=== PATIENT | female | born 1985 | race Caucasian/White ===

== ENCOUNTER → 2019-09-03 | Outpatient (CLI) | payer MEDICAID, SELFPAY ==
[2017-07-12 09:24] VITALS: BMI 34.4
[2019-09-03 19:14] LABS: Chlamydia Trachomatis by PCR Negative (Negative); Neisserai gonorrhoeae by PCR Negative (Negative); Probe Check PASS; Sample Adequacy Control PASS; Specimen Processing Control PASS
[2019-09-09 09:59] LABS: HPV APTIMA, High Risk Negative (Negative); HPV Reflexed? YES, CHARGE PATIENT
== END | disposition home or self-care (01) ==
LOC: LABSPEC 13:39
PROVIDERS: Visit Provider Obstetrics & Gynecology
DX: Z12.4 Encounter for screening for malignant neoplasm of cervix (principal); Z11.3 Encounter for screening for infections with a predominantly sexual mode of transmission
CPT/HCPCS: 87491; 87591; 87624; 88175; G0145

== ENCOUNTER → 2019-09-11 14:48 | Outpatient (CLI) | payer MEDICAID, SELFPAY ==
[2017-07-12 09:24] VITALS: BMI 34.4
[2019-09-11 15:44] LABS: Absolute Lymphocyte Count 2.06 X10^3/uL (0.83-4.51); Absolute Neutrophil Count 5.8 X10^3/uL (2.0-7.7); Basophil# 0.03 X10^3/uL; Basophil% 0.4 % (0-1); Eosinophil# 0.08 X10^3/uL; Hematocrit 40.5 % (37-47); Hemoglobin 13.9 g/dL (12.0-15.0); Lymphocyte # 2.06 X10^3/ul (4.0); Lymphocyte % 24.7 % (19-41); Mean Corp Hgb Conc 34.3 g/dL (32-36); Mean Corpuscular Hgb 30.7 pg (27.0-32.0); Mean Corpuscular Volume 89.4 fL (81-99); Monocyte# 0.32 X10^3/uL; Monocyte% 3.8 % (0-10); NRBC Flagged by Analyzer 0 % (0-5); Neutrophil # 5.82 X10^3/uL (2.7-7.7); Neutrophil % 69.7 % (47-70); Platelet Count 176 K/mm3 (150-450); RBC Distribution Width CV 12.4 % (11.6-14.6); RBC Distribution Width SD 40.6 fl (35.1-43.9); Red Blood Count 4.53 M/mm3 (4.2-5.4); White Blood Count 8.3 K/mm3 (4.4-11.0)
[2019-09-11 16:02] LABS: Thyroid Stim Hormone (TSH) 0.78 uIU/mL (0.358-3.74)
[2019-09-11 16:03] LABS: Amphetamine Urine VISTA NEGATIVE (<1000 ng/mL); Barbiturate Urine VISTA NEGATIVE (< 200 ng/mL); Benzodiazepine Urine VISTA NEGATIVE (< 200 ng/mL); Cocaine Urine VISTA NEGATIVE (< 300 ng/mL); Ecstacy Urine VISTA NEGATIVE (< 500 ng/mL); Methadone Urine VISTA NEGATIVE (< 300 ng/mL); PCP Urine VISTA NEGATIVE (< 25 ng/mL); THC Urine VISTA POSITIVE (< 50 ng/mL); Vista UDS pH Range 5
[2019-09-11 16:10] LABS: Color, Urine Yellow (Yellow); Glucose, Dipstick Normal (Normal); Ketone-Dipstick 5 mg/dl (Negative); Leukocyte Esterase-Dipstick 100 /ul (Negative); Nitrite-Dipstick Negative (Negative); Occult Blood-Urine 10 /ul (Negative); Protein-Dipstick Negative (Negative); Urine Bilirubin Dipstick Negative (Negative); Urine Clarity Cloudy (Clear); Urine Urobilinogen Normal (Normal)
[2019-09-12 09:01] LABS: HIV - WCH Non-Reactive (Nonreactive); Hepatitis B Surface Antigen Non-Reactive (Nonreactive); Hepatitis C Antibody Non-Reactive (Nonreactive); Rubella IgG 30.8 IU/mL
[2019-09-18 01:51] LABS: Prenatal RPR NONREACTIVE (NONREACTIVE)
== END ==
PROVIDERS: Visit Provider Obstetrics & Gynecology
DX: Z34.81 Encounter for supervision of other normal pregnancy, first trimester (principal)
CPT/HCPCS: 36415; 80307; 81002; 84443; 85025; 86703; 86762; 86803; 87340

== ENCOUNTER → 2019-11-27 | Outpatient (CLI) | payer MEDICAID, SELFPAY ==
[2017-07-12 09:24] VITALS: BMI 34.4
[2019-11-27 17:29] LABS: Amphetamine Urine VISTA NEGATIVE (<1000 ng/mL); Barbiturate Urine VISTA NEGATIVE (< 200 ng/mL); Benzodiazepine Urine VISTA NEGATIVE (< 200 ng/mL); Cocaine Urine VISTA NEGATIVE (< 300 ng/mL); Ecstacy Urine VISTA NEGATIVE (< 500 ng/mL); Methadone Urine VISTA NEGATIVE (< 300 ng/mL); PCP Urine VISTA NEGATIVE (< 25 ng/mL); THC Urine VISTA POSITIVE (< 50 ng/mL); Vista UDS pH Range 6
== END | disposition home or self-care (01) ==
LOC: LABSPEC 17:01
PROVIDERS: Referring Provider Obstetrics & Gynecology; Visit Provider Obstetrics & Gynecology
DX: Z34.82 Encounter for supervision of other normal pregnancy, second trimester (principal)
CPT/HCPCS: 80307

== ENCOUNTER → 2020-01-15 15:26 | Outpatient (CLI) | payer MEDICAID, SELFPAY ==
[2017-07-12 09:24] VITALS: BMI 34.4
[2020-01-15 16:40] LABS: Hematocrit 36.9 % (37-47); Hemoglobin 12.5 g/dL (12.0-15.0); Mean Corp Hgb Conc 33.9 g/dL (32-36); Mean Corpuscular Hgb 30.5 pg (27.0-32.0); Mean Platelet Vol. 11.5 fl (6.2-12.0); Platelet Count 197 K/mm3 (150-450); RBC Distribution Width CV 13.2 % (11.6-14.6); RBC Distribution Width SD 43.1 fl (35.1-43.9); White Blood Count 7.2 K/mm3 (4.4-11.0)
[2020-01-15 16:45] LABS: Glucose Challenge Gest 1H 50g 136 mg/dL (70-140)
== END ==
PROVIDERS: Visit Provider Obstetrics & Gynecology
DX: Z34.83 Encounter for supervision of other normal pregnancy, third trimester (principal)
CPT/HCPCS: 36415; 82950; 85027

== ENCOUNTER → 2020-02-13 16:38 | Outpatient (CLI) | payer MEDICAID, SELFPAY ==
[2020-02-13 17:54] LABS: Amphetamine Urine VISTA NEGATIVE (<1000 ng/mL); Barbiturate Urine VISTA NEGATIVE (< 200 ng/mL); Benzodiazepine Urine VISTA NEGATIVE (< 200 ng/mL); Cocaine Urine VISTA NEGATIVE (< 300 ng/mL); Ecstacy Urine VISTA NEGATIVE (< 500 ng/mL); Methadone Urine VISTA NEGATIVE (< 300 ng/mL); PCP Urine VISTA NEGATIVE (< 25 ng/mL); THC Urine VISTA NEGATIVE (< 50 ng/mL); Vista UDS pH Range 7
== END ==
PROVIDERS: Referring Provider Obstetrics & Gynecology; Visit Provider Obstetrics & Gynecology
DX: Z34.83 Encounter for supervision of other normal pregnancy, third trimester (principal)
CPT/HCPCS: 80307

== ENCOUNTER 2020-03-02 01:11 | Outpatient (CLI) | payer MEDICAID, SELFPAY ==
[2017-07-12 09:24] VITALS: BMI 34.4
[2020-03-02 01:25] VITALS: BP 103/58; PULSE 88
[2020-03-02 02:09] VITALS: BMI 31.4
--- NOTE | 2020-03-03 07:37 | OB.TRI.NOTE ---
- Problem List (1) 34 weeks gestation of Status: Acute History of Present Illness Date of Service: 03/02/20 Reason For Visit: RULE OUT LABOR Date of Service: 03/02/20 Final TORSTEN: 04/07/20 Gestational age: 35 Weeks and 0 Days History of Present Illness: Here to rule out labor Allergies No Known Allergies Allergy (Verified 03/02/20 02:09) Review of Systems Constitutional: Denies: Chills, Fever, Weight Change HEENT: Denies: Head Aches, Sinus Congestion, Sinus Drainage Cardiovascular: Denies: Chest Pain, Palpitations Respiratory: Denies: Cough, Shortness of breath at rest, Sputum production Gastrointestinal: Denies: Abdominal Pain, Nausea, Vomiting Genitourinary: Denies: Dysuria Musculoskeletal: Denies: Joint Pain, Joint Tenderness Skin: Denies: Rash, Wounds Neurological: Denies: Numbness, Tingling, Focal weakness Psychiatric: Denies: Anxiety, Depression, Homicidal Ideations, Suicidal Ideations Hematologic/ Lymphatic: Denies: Easy Bruising, Easy Bleeding Physical Exam Vitals: Vital Signs Pulse BP 88 103/58 L 03/02/20 01:25 03/02/20 01:25 General: Alert, Oriented x3, No apparent distress HEENT: Atraumatic, Normocephalic. Negative for: Thyromegaly, Lymphadenopathy Cardiovascular: Regular rate, Regular Rhythm Lungs: Clear to auscultation Abdomen: Bowel Sounds Present, Gravid Neurological: Deep Tendon Reflexes 2+/4 and Symmetrical, Neuro grossly intact NUMBERER AND WIRER: Normal external genitalia. Negative for: Vulvar lesions Estimated gestational size: Appropriate for gestational size Presentation: Cephalic Cervix Dilation (cm): 1 - per RN Station: -2 Effacement (%): 70 NST - FHR Rate Baby A Baseline: 120 Variability:: Moderate Accelerations:: 15 x 15 Decelerations:: None NST Reactive:: Yes FHR Category:: Category I Uterine Activity:: Irritability Impression/Plan A/P: here to rule out labor at 34.6 weeks gestation SVE unchanged after 2.5 hours of monitoring NST Category I Uterine irritability To discharge home to hydrate, rest, and Tylenol for discomfort Follow up with OB office tomorrow
== END 2020-03-02 04:00 | disposition home or self-care (01) ==
PROVIDERS: Referring Provider Obstetrics & Gynecology; Visit Provider Obstetrics & Gynecology
DX: O47.03 False labor before 37 completed weeks of gestation, third trimester (principal); Z3A.34 34 weeks gestation of pregnancy
CPT/HCPCS: 59025; 59050; 99218; G0378

== ENCOUNTER → 2020-03-12 | Outpatient (CLI) | payer MEDICAID, SELFPAY ==
[2020-03-02 02:09] VITALS: BMI 31.4
== END | disposition home or self-care (01) ==
LOC: LABSPEC 16:03
PROVIDERS: Visit Provider Obstetrics & Gynecology
DX: Z36.85 Encounter for antenatal screening for Streptococcus B (principal)
CPT/HCPCS: 87081

== ENCOUNTER 2020-03-30 11:00 | Outpatient (CLI) | payer MEDICAID, SELFPAY ==
[2020-03-30 11:17] VITALS: BMI 34.5
[2020-03-30 11:22] VITALS: PULSE 88; TEMP 36.6; O2SAT 97
[2020-03-30 11:54] VITALS: BP 106/57; PULSE 83
--- NOTE | 2020-03-30 19:39 | OB.TRI.HP_ITS ---
History of Present Illness Date of Service: 03/30/20 Was patient seen by the physician?: No Reason For Visit: R/O LABOR Date of Service: 03/30/20 Final TORSTEN: 04/07/20 Final TORSTEN Source: [place] <20 weeks Gestational age: 38 Weeks and 6 Days History of Present Illness: 38+ week intrauterine presents with some contractions. Patient scheduled for repeat tomorrow. Allergies No Known Allergies Allergy (Verified 03/30/20 11:12) Laboratory Studies: Laboratory Tests 03/30/20 Range/Units 11:15 COVID-19 (TAMAR) Not Detected (Not Detect) Physical Exam Vitals: Vital Signs Temp Pulse BP Pulse Ox 97.8 F 83 106/57 L 97 03/30/20 11:22 03/30/20 11:54 03/30/20 11:54 03/30/20 11:22 NST - FHR Rate Baby A NST Reactive:: Yes FHR Category:: Category I Impression/Plan 38+ week intrauterine with false labor. Reactive nonstress test. Cervix nonthreatening. Return if in labor later today or for scheduled C- section tomorrow.
== END 2020-03-30 12:45 | disposition home or self-care (01) ==
LOC: WPOUT 11:05 → WP 11:06
PROVIDERS: Referring Provider Obstetrics & Gynecology; Visit Provider Obstetrics & Gynecology
DX: O47.1 False labor at or after 37 completed weeks of gestation (principal); Z3A.38 38 weeks gestation of pregnancy
CPT/HCPCS: 59025; 59050; 87635; 94799; 99218; G0378; U0003

== ENCOUNTER 2020-03-31 05:10 | Inpatient (IN) | payer MEDICAID, SELFPAY ==
[2020-03-30 11:17] VITALS: BMI 34.5
--- NOTE | 2020-03-30 19:53 | PCM.HP.BLA ---
History and Physical Date of Admission: 03/31/20 ACOG ANTEPARTUM RECORD - HISTORY AND PHYSICAL (03/30/2020) Name: MEL BURRIS History of This : This is a 35-year-old G6, P3 AB 2 who presents for repeat at 39 weeks gestation. care has been uneventful except for marijuana use which she was advised to discontinue. She is also hepatitis C antibody positive but hepatitis C RNA was not detected. She has had prior sections x3. OB Physician: WILLY [place]'s Physician: DR. YURIDIA COONEY ...................................................................... : 1985 Age: 35 Address: [address] [place] [address] Phone: (h) [phone] Insurance Carrier: [facility] [id number] Emergency Contact: MARIE COMBSWELL [phone] ...................................................................... Final TORSTEN: 04/07/20 By Ultrasound: 11 weeks 1 day PARITY: (G-Total Pregnancies P-Fullterm,Premature,Induced AB,Spont AB, Ectopics, Multiple,Living) TORSTEN CONFIRMATION: By LMP: 07/02/19 Initial Exam: 04/07/20 By First Ultrasound Exam: 04/07/20 Final TORSTEN: 04/07/20 OB PROBLEM LIST: Daily marijuana use, for nausea; Advised to stop! Declines AFP and CF AMA, declines cfDNA testing Anxiety with past treatment Hep C antibody positive; MFM consult done. --Hep C RNA not detected! 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 Illicit Drug Use - Marijuana - using for nausea currently Sexual Activity - did not discuss sexual history Residence - rents an apartment and with three children Place of - [place] Hours Worked - 20 Spouse-Sig Other Name - Brigido Hand Spouse-Sig Other Occupation - Unemployed Children Name(s) - Nader (), Rashad (), Jaimee() PRIOR DELIVERY HISTORY DEL DATE GEST LAB WT LB WT OZ TYPE ANES LABOR TX Sep 02 5 0 0 0 Vag None No Sep 09 9 0 0 0 Vag None No Aug 28 40 12 6 3 C-Sec Epidural No May 31 38 0 10 0 C-Sec Spinal No Jul 13 39 0 7 0 C-Sec Spinal No ANTEPARTUM FLOW CHART VISIT GE RTC FU F F FL U U DATE WK MD WKS HT PN HR M SS BP ED WT FL GL D EF ST __ ____ ___ __ __ ___ __ __ __ ___ __ __ __ ___ __ 29 Feb JMW 3 38 + + 112/60 sl 203 - - Feb JMW 1 37 + + 116/68 tr 201 tr - Feb JMW 1 36 + + 102/60 1+ 197 tr - UN Feb CH 2 34 V + + 110/64 sl 190 tr - Jan JMW 2 32 + + 118/58 sl 188 - - Feb 23 CH 2 30 + + 100/60 0 185 tr - January 21 JMW 2 28 + + 126/66 0 179 - - January 20 JMW 1 27 + + 122/68 0 181 - - 30 Dec 19 JMW 3 25 + / 0 02 Dec 15 JMW 4 21 + + 112/58 0 179 tr - 04 Oct 08 JMW 4 + ? 116/68 0 180 tr - 16 Sep 05 JMW US 106/60 0 184 ANTEPARTUM NOTE(S): Mar 24 2020: Good FM Mar 18 2020: Good FM Mar 12 2020: GBS Done Feb 26 2020: possible pulled muscle under left breast, burning pain. Feb 13 2020: Decreased FM and low abd. pain, RLP noted Jan 29 2020: Complains of green discharge she has had for a month. Jan 15 2020: watch weight, Good FM Jan 07 2020: see progress note, c/w yeast-Monistat Dec 25 2019: Good FM, no spotting, bleeding ctxs Nov 27 2019: Sono Today,Good FM,Feeling Well Sep 30 2019: Nausea Better,Fatigue Daily Sep 11 2019: Sono,NOB and PNV Today,Nausea/Vomiting COMPREHENSIVE ANTEPARTUM NOTE(S): Mar 24 2020: Mel is her today for PNV PreOp. She is accompanied by boyfriend. Good FM, Some edema in feet. ProOp paper read and signed today. Ensure was given to PT. Medications and allergies reviewed today. No questions or concerns expressed today. LJ Mar 18 2020: H taken to OB. tkg Mar 18 2020: Mel is her today accompanied by boyfriend. Good FM, Some edema in feet. She states that she is tired of being . Expressed interest in moving date up if baby is big enough. Medications and allergies reviewed today. No other questions concerns expressed today. LJ Mar 12 2020: Mel is her today accompanied by boyfriend. Good FM, Some edema in feet. Medications and allergies reviewed today. GBS due today. LARC concent read and signed. No questions or concerns expressed today. [facility] Feb 26 2020: Mel is being seen for PNV. She is accompanied by 2 [facility]. She is feeling well but having pain underneath left breast and is having a burning like pain. AM Feb 26 2020: Here today with 2 officers. Left upper quad pain with ribs out of place upon palpation. To use ice on it and order wrote for that. Has court the so next appt made for the . Discussed GBS collection even with repeat csection so bottoms off. States understanding. If left in senior living the nurse might reschedule it. - Feb 13 2020: Mel presents here today with [facility]. for PNV due to c/o low abdominal pains that radiate around from one side to the other and occasional low backache. Reports decreased FM as well. Denies spotting/bleeding or leaking of fluids. CHRISTINE Jan 29 2020: here today for routine PNV. Reviewed 3rd trimester labs WNL with GTT being high normal. Discussed to watch carbs, sweets, and extras. States understanding. Reports +FM.Still having green discharge and examined today. On inspection thick green discharge. WEt mount done with +clue cells and yeast. Rx for BV and yeast sent in. Has a repeat Csection planned. To return in 2 weeks for routine PNV. - Jan 15 2020: 1 Hr Glucose, CBC drawn today. Good FM. Using Monistat 7 for vaginal yeast. kb Jan 07 2020: Mel is here as a work in visit. Called to triage on Sunday. Concerned with yellowish -- greenish vaginal discharge for the past few week. Glucola bottle and instructions given to be done next visit. Good FM. kb Sep 11 2019: Mel is here for her NOB visit at 10 w 1 d, she is a A2 (1 induced, 1 spontaneous) with an TORSTEN of 04/07/2020. She states that she is feeling terrible with nausea and would like NOB visit to be as quick as possible, and I now what to expect. Prior C/S x 3, she plans a repeat C/S at [facility] and will formula feed. She resides with her three children. New FOB this , Brigido Hand; she states she is unsure of his involvement. Brigido has 6 children form previous relationships, ages 5-18. labs drawn prior to NOB visit. She has office ed materials at home, and is aware of emergencies/danger signs to report and common OTC medications approved/ not approved for use during . Discussed round ligament pain, how to contact the office after hours, and reporting a suspected UTI. Mel states that she is nauseated every day and often vomits several times a day, she has a prescription for Promethazine, but states it doesn't help. Reviewed trying Vitamin B6 50 mg twice a day, along with Unisom (Doxylamine) at bedtime. Other ways to minimize nausea discussed, including small frequent meals with protein included throughout the day], adequate water hydration of at least 1 gallon per 24 hours, and Accupressure bracelets. She has no been taking any vitamin or multivitamins as they make nauseous; suggested trying two children's [employer] chewable multivitamins a day until nausea resolves. Genetic Screening form completed, Brigido(?) is AA, but she does not know if he has been checked for Sickle Cell trait. MSAFP and CF testing declined, consent signed as such. She is smoking 1 ppd, discussed risks to self, fetus, baby, and ATQ. Mel states that she smokes marijuana lately for nausea, ATQ; reinforced ways to help minimize nausea as noted above. She denies use of ETOH. water and dietary needs reviewed, including caloric needs, recommended weight gain, limiting empty calories,and limiting caffeine to one cup a day. Printed guide for food safety during provided with review. Lifting restrictions for , as well as recommended physical activity reviewed. She states that she understands all information provided during NOB visit. AW New Sep 11 2019: Attempted to see patient today. She stormed out of the room stating she wasn't waiting any longer and was leaving now. Met briefly with Sujit for NOB visit. Yelled that she would reschedule todays appt with CRISTINA. - SUSAN Sep 03 2019: ok Sep 03 2019: Mel presents here today for Missed Menses appointment. 34 y.o. G 6 P 3 smoker of 1/2 PPD (ATQ) and uses Marijuana prn for nausea with LMP 19 lasting 3 days and light. Positive UPT today in our Office. Presents here today at 8 weeks 6 days with an approximate TORSTEN of 20. Reports having daily nausea with vomiting and would like script for Promethazine sent in to Pharmacy. Denies spotting/bleeding thus far in . Brief review of danger signs and bleeding in . Plans Repeat with BTO at [facility] with this . Currently not taking a Vitamin as she cannot tolerate same with her nausea, we discussed trying it at night. Educational Materials given with a sample of Nature Made Vitamin. Medication and Allergy lists up-dated. CHRISTINE REVIEW OF SYSTEMS: GENERAL - Denies fever, or chills SKIN - Denies rash, new skin lesions, or change in moles EYES - Denies blurred vision, or change in visual acuity EARS - Denies ear pain, or difficulty hearing NOSE - Denies nasal congestion, discharge, or bleeding MOUTH - Denies sore throat, or difficulty swallowing NECK - Denies pain or swelling RESPIRATORY - Denies shortness of breath, cough, wheezing CARDIOVASCULAR - Denies palpitations, chest pain, orthopnea, PND, peripheral edema, syncope or claudication GASTROINTESTINAL - Denies nausea, vomiting, diarrhea, constipation, Denies abdominal pain, melena and or bright red blood GENITOURINARY - Denies dysuria, frequency of urination, urgency, or hesitancy MUSCULOSKELETAL - Denies joint or muscle pain, or back pain NEUROLOGICAL - Denies localized numbness, weakness, or tingling PSYCHIATRIC - Denies depression, anxiety, substance abuse or suicide attempts ENDOCRINE - Denies heat or cold intolerance, weight loss or gain, increasing thirst HEMATO-IMMUNOLOGIC - Denies easy bruising, bleeding, oral ulcerations or recurrent infections GENETICS SCREENING: Age 35+ years: No Thalassemia: No Neural Tube Defect: No Down Syndrome: No KRISTIAN-SACHS: No Sickle Cell Disease: No Hemophilia: No Musc. Dystrophy: No Cystic Fibrosis: No-declines screening Jose G Chorea: No Mental Retardation: No Fragile X: No Other genetic: No Other defects: No SABs/still births: No Drugs since LMP: Yes INFECTION HISTORY: High risk AIDS: No High risk Hepatitis: No Exposed to TB: No Exposed to Herpes: No Rash/viral illness since LMP: No History of STD: No MENSTRUAL HISTORY: *Menses Amount/Duration: 3 days, lightMenses Regularity: RegularFrequency: monthly* PAST SUMMARY: PARITY: 1. Total Pregnancies............ 6 2. Full Term Pregnancies........ 3 3. Premature.................... 0 4. Abortions - Induced.......... 1 5. Abortions - Spontaneous...... 1 6. Ectopics..................... 0 7. Multiple Births.............. 0 8. Living Children.............. 3 PAST #1: Date of :.................. 09/11/01 Gestation Weeks:................ 40 Length of labor(hours):......... 12 Sex:............................ M Weight-lbs:............... 6 Weight-oz:................ 3 Type of Delivery:............... C-Sect Type of Anesthesia:............. Epidural Place of Delivery:.............. [place] Treatment of Labor?:.... No Comment: BREECH PAST #2: Date of :.................. 06/15/05 Gestation Weeks:................ 38 Length of labor(hours):......... 0 Sex:............................ M Weight-lbs:............... 10 Weight-oz:................ 0 Type of Delivery:............... C-Sect Type of Anesthesia:............. Spinal Place of Delivery:.............. [place] Treatment of Labor?:.... No Comment: NO PAST #3: Date of :.................. 08/27/06 Gestation Weeks:................ 5 Length of labor(hours):......... 0 Sex:............................ Weight-lbs:............... 0 Weight-oz:................ 0 Type of Delivery:............... Vag Type of Anesthesia:............. None Place of Delivery:.............. [place] Treatment of Labor?:.... No Comment: SAB PAST #4: Date of :.................. 08/27/13 Gestation Weeks:................ 9 Length of labor(hours):......... 0 Sex:............................ UNKNOWN Weight-lbs:............... 0 Weight-oz:................ 0 Type of Delivery:............... Vag Type of Anesthesia:............. None Place of Delivery:.............. [place] Treatment of Labor?:.... No Comment: TAB PAST #5: Date of :.................. 07/19/17 Gestation Weeks:................ 39 Length of labor(hours):......... 0 Sex:............................ F Weight-lbs:............... 7 Weight-oz:................ 0 Type of Delivery:............... C-Sect Type of Anesthesia:............. Spinal Place of Delivery:.............. [place] Treatment of Labor?:.... No Comment: PHYSICAL EXAMINATION General Appearence: 35 yo female in no acute distress Vital Signs: AF, VSS Heart: RRR without rubs or gallops Lungs: CTA x 2 Breasts: deferred Abdomen: gravid Pelvis: Cervix: Presentation: cephalic Station: Fetus: Size: AGA Movement: present Heart: present Labs for : MEL BURRIS since 07/12/2019 ORDER DATEIN DESCRIPTION VALUE UNITS RANGE A+ COMMENT OB TRIAGE PHYSICIAN NOTE 03/30/20 [facility] Medical Records Department [address] [place] [address] [place] [address] OB Triage Physician Note 03/30/201938 MR#: [id number] Acct: [id number] Name: MEL BURRIS Rep #: [id number] : 1985 35 From: Nargis Vallecillo MD PCP: Care Physician, No Primary Status:DEP CLI Y Location: [facility] History of Present Illness Date of Service: 03/30/20 Was patient seen by the physician?: No Reason For Visit: R/O LABOR Date of Service: 03/30/20 Final TORSTEN: 04/07/20 Final TORSTEN Source: US <20 weeks Gestational age: 38 Weeks and 6 Days History of Present Illness: 38+ week intrauterine presents with some contractions. Patient scheduled for repeat C- section tomorrow. Allergies No Known Allergies Allergy (Verified 03/30/20 11:12) Laboratory Studies: Laboratory Tests 03/30/20 Range/Units 11:15 COVID-19 (TAMAR) Not Detected (Not Detect) Physical Exam Vitals: Vital Signs Temp Pulse BP Pulse Ox 97.8 F 83 106/57 L 97 03/30/20 11:22 03/30/20 11:54 03/30/20 11:54 03/30/20 11:22 NST - FHR Rate Baby A NST Reactive:: Yes FHR Category:: Category I Impression/Plan 38+ week intrauterine with false labor. Reactive nonstress test. Cervix nonthreatening. Return if in labor later today or for scheduled tomorrow. 03/30/201940 Date Nargis Vallecillo MD Cosigner Signature (if applicable): Date CC: No Primary Care Physician; Dr. Nargis Vallecillo MD Signed CORONAVIRUS 19, TAMAR SCREEN 03/30/20 NOTE Original Ordering Provider: Nargis Vallecillo COVID-19,TAMAR Not Detected Not Detect Normal Reference Range: Not Detected Method:(RT-PCR) real-time reverse transcriptase PCR QordobaES Instrument *The Food and Drug Administration (FDA) has issued an Emergency Use Authorization (EAU) for the JOSE ENRIQUE SARS-CoV-2 Assay for the rapid detection of the virus that causes COVID-19. This test has been validated, but the FDAs independent review of this validation is pending. *Negative results do not preclude infection and should not be used as the sole basis for treatment or patient management. Optimum specimen types and timing for peak viral levels during infections caused by SARS-CoV-2 have not been determined. Collection of multiple specimens from the same patient may be necessary to detect the virus. The possibility of a false negative result should be considered if the patient has clinical presentation or has had recent exposure. Reviewed by NARGIS CULTURE, GROUP B STREPTOCOCCUS 03/12/20 NOTE Original Ordering Provider: Nargis Vallecillo Comments: VAGINAL/RECTAL PRIYANKA Culture Group B Beta Streptococcus is not isolated. Reviewed by NARGIS OB TRIAGE PHYSICIAN NOTE 03/03/20 [facility] Medical Records Department [address] [place] [address] OB Triage Physician Note 03/03/20 0737 MR#: [id number] Acct: [id number] Name: MEL BURRIS Rep #: [id number] : 1985 35 From: Sheron Minaya CNM PCP: Care Physician, No Primary Status:DEP CLI Y Location: [facility] - Problem List (1) 34 weeks gestation of Status: Acute History of Present Illness Date of Service: 03/02/20 Reason For Visit: RULE OUT LABOR Date of Service: 03/02/20 Final TORSTEN: 04/07/20 Gestational age: 35 Weeks and 0 Days History of Present Illness: Here to rule out labor Allergies No Known Allergies Allergy (Verified 03/02/20 02:09) Review of Systems Constitutional: Denies: Chills, Fever, Weight Change HEENT: Denies: Head Aches, Sinus Congestion, Sinus Drainage Cardiovascular: Denies: Chest Pain, Palpitations Respiratory: Denies: Cough, Shortness of breath at rest, Sputum production Gastrointestinal: Denies: Abdominal Pain, Nausea, Vomiting Genitourinary: Denies: Dysuria Musculoskeletal: Denies: Joint Pain, Joint Tenderness Skin: Denies: Rash, Wounds Neurological: Denies: Numbness, Tingling, Focal weakness Psychiatric: Denies: Anxiety, Depression, Homicidal Ideations, Suicidal Ideations Hematologic/ Lymphatic: Denies: Easy Bruising, Easy Bleeding Physical Exam Vitals: Vital Signs Pulse BP 88 103/58 L 03/02/20 01:25 03/02/20 01:25 General: Alert, Oriented x3, No apparent distress HEENT: Atraumatic, Normocephalic. Negative for: Thyromegaly, Lymphadenopathy Cardiovascular: Regular rate, Regular Rhythm Lungs: Clear to auscultation Abdomen: Bowel Sounds Present, Gravid Neurological: Deep Tendon Reflexes 2+/4 and Symmetrical, Neuro grossly intact CLINICAL LABORATORY AIDES TEACHER: Normal external genitalia. Negative for: Vulvar lesions Estimated gestational size: Appropriate for gestational size Presentation: Cephalic Cervix Dilation (cm): 1 - per RN Station: -2 Effacement (%): 70 NST - FHR Rate Baby A Baseline: 120 Variability:: Moderate Accelerations:: 15 x 15 Decelerations:: None NST Reactive:: Yes FHR Category:: Category I Uterine Activity:: Irritability Impression/Plan A/P: here to rule out labor at 34.6 weeks gestation SVE unchanged after 2.5 hours of monitoring NST Category I Uterine irritability To discharge home to hydrate, rest, and Tylenol for discomfort Follow up with OB office tomorrow 03/03/20 0743 Date Sheron Minaya CNM 03/03/20 0933 Cosigner Signature (if applicable): Date Nargis Vallecillo MD CC: MINA Minaya; No Primary Care Physician; Dr. Nargis Vallecillo MD Signed Reviewed by NARGIS URINE DRUG SCREEN (BASILIO) 02/13/20 NOTE Original Ordering Provider: Nargis Vallecillo TO BE CONFIRMED CONFIRMATORY TESTING FOR ALL POSITIVE URINE DRUG SCREEN RESULTS WILL ONLY BE SENT OUT UPON PHYSICIAN ORDER. BASILIO Urine Drug Screen methods provide only preliminary analytical test results. A more specific alternate chemical method must be used in order to obtain a confirmed analytical result. Gas chromatography/mass spectrometery (GC/MS) is the preferred confirmatory method. Clinical consideration and professional judgement should be applied to any drug of abuse test result, particularly when preliminary positive results are used. URINE TCA TESTING MUST BE ORDERED SEPARATELY. USE TEST MNEMONIC: [facility] UDS PH 7 AMPHETAMINES NEGATIVE <1000 ng/mL BARBITIURATES NEGATIVE < 200 ng/mL BENZODIAZIPINE NEGATIVE < 200 ng/mL COCAINE NEGATIVE < 300 ng/mL ECSTACY NEGATIVE < 500 ng/mL METHADONE NEGATIVE < 300 ng/mL OPIATES NEGATIVE < 300 ng/mL PCP NEGATIVE < 25 ng/mL THC NEGATIVE < 50 ng/mL Reviewed by NARGIS GLUCOSE CHALLENGE GEST 1H 50G 01/15/20 NOTE Original Ordering Provider: Nargis Vallecillo GLU GEST 50G 1H 136 mg/dL 70-140 Reviewed by NARGIS CBC-COMPLETE BLOOD CNT NO DIFF 01/15/20 NOTE Original Ordering Provider: Nargis Vallecillo WBC 7.2 K/mm3 4.4-11.0 RBC 4.10 M/mm3 4.2-5.4 L HGB 12.5 g/dL 12.0-15.0 HCT 36.9 % 37-47 L MCV 90.0 fL 81-99 MCH 30.5 pg 27.0-32.0 MCHC 33.9 g/dL 32-36 RDW CV 13.2 % 11.6-14.6 RDW SD 43.1 fl 35.1-43.9 PLT 197 K/mm3 150-450 MPV 11.5 fl 6.2-12.0 Reviewed by NARGIS URINE DRUG SCREEN (VISTA) 11/27/19 NOTE Original Ordering Provider: Nargis Vallecillo TO BE CONFIRMED CONFIRMATORY TESTING FOR ALL POSITIVE URINE DRUG SCREEN RESULTS WILL ONLY BE SENT OUT UPON PHYSICIAN ORDER. [facility]IST[facility] Urine Drug Screen methods provide only preliminary analytical test results. A more specific alternate chemical method must be used in order to obtain a confirmed analytical result. Gas chromatography/mass spectrometery (GC/MS) is the preferred confirmatory method. Clinical consideration and professional judgement should be applied to any drug of abuse test result, particularly when preliminary positive results are used. URINE TCA TESTING MUST BE ORDERED SEPARATELY. USE TEST MNEMONIC: [facility] UDS PH 6 AMPHETAMINES NEGATIVE <1000 ng/mL BARBITIURATES NEGATIVE < 200 ng/mL BENZODIAZIPINE NEGATIVE < 200 ng/mL COCAINE NEGATIVE < 300 ng/mL ECSTACY NEGATIVE < 500 ng/mL METHADONE NEGATIVE < 300 ng/mL OPIATES NEGATIVE < 300 ng/mL PCP NEGATIVE < 25 ng/mL THC POSITIVE < 50 ng/mL H Reviewed by NARGIS RPR 09/11/19 NOTE Original Ordering Provider: Nargis Vallecillo RPR NONREACTIVE NONREACTIVE Reviewed by NARGIS HEPATITIS C ANTIBODY 09/11/19 NOTE Original Ordering Provider: Nargis Vallecillo HEPATITIS C AB Non-Reactive Nonreactive Non Reactive: < 0.8 Equivocal: >/= 0.8 to < 1.0 Reactive: >/= 1.0 The CDC recommends that a reactive/equivocal HCV antibody result be followed up by the HCV Nucleic Acid Amplification test (991724) Reviewed by NARGIS HEPATITIS B SURFACE ANTIGEN 09/11/19 NOTE Original Ordering Provider: Nargis Vallecillo HEPB SURFACE AG Non-Reactive Nonreactive Reviewed by NARGIS HIV - [facility] 09/11/19 NOTE Original Ordering Provider: Nargis Vallecillo HIV - [facility] Non-Reactive Nonreactive Reviewed by NARGIS RUBELLA IGG 09/11/19 NOTE Original Ordering Provider: Nargis Vallecillo RUBELLA IGG 30.8 IU/mL Antibody results Interpretation of Immune Status < 5 IU/ml Presumed Non-immune 5 - < 10 IU/ml Equivocal > or = 10 IU/ml Presumed Immune Reviewed by NARGIS T AND S-NO CHARGE W/PNP 09/11/19 Reason for Type AND Screen/Red Cells: Surgery? N [facility]~[address] [place], [address]~ BLOOD TYPE GEL O POSITIVE N AB SCREEN GEL NEGATIVE N Reviewed by NARGIS URINALYSIS, ROUTINE (DIPSTICK) 09/11/19 NOTE Original Ordering Provider: Nargis Vallecillo COLOR Yellow Yellow CLARITY Cloudy Clear GLUCOSE, UR Normal mg/dl Normal BILIRUBIN URINE Negative mg/dL Negative KETONE UR 5 mg/dl Negative H SP.GR. DIPSTX 1.020 1.002-1.030 PH UR 5.0 5.0 - 8.0 PROT DIPSTX Negative mg/dl Negative UROBILI Normal mg/dl Normal NITRITE UR Negative Negative OCCULT BLOOD-UR 10 /ul Negative H LEUK ESTERASE 100 /ul Negative H Reviewed by NARGIS URINE DRUG SCREEN (VISTA) 09/11/19 NOTE Original Ordering Provider: Nargis Vallecillo TO BE CONFIRMED CONFIRMATORY TESTING FOR ALL POSITIVE URINE DRUG SCREEN RESULTS WILL ONLY BE SENT OUT UPON PHYSICIAN ORDER. [facility]IST[facility] Urine Drug Screen methods provide only preliminary analytical test results. A more specific alternate chemical method must be used in order to obtain a confirmed analytical result. Gas chromatography/mass spectrometery (GC/MS) is the preferred confirmatory method. Clinical consideration and professional judgement should be applied to any drug of abuse test result, particularly when preliminary positive results are used. URINE TCA TESTING MUST BE ORDERED SEPARATELY. USE TEST MNEMONIC: [facility] UDS PH 5 AMPHETAMINES NEGATIVE <1000 ng/mL BARBITIURATES NEGATIVE < 200 ng/mL BENZODIAZIPINE NEGATIVE < 200 ng/mL COCAINE NEGATIVE < 300 ng/mL ECSTACY NEGATIVE < 500 ng/mL METHADONE NEGATIVE < 300 ng/mL OPIATES NEGATIVE < 300 ng/mL PCP NEGATIVE < 25 ng/mL THC POSITIVE < 50 ng/mL H Reviewed by NARGIS THYROID STIM HORMONE (TSH) 09/11/19 NOTE Original Ordering Provider: Nargis Vallecillo TSH 0.78 uIU/mL 0.358-3.74 Reviewed by NARGIS CBC W/DIFF, AUTOMATED 09/11/19 NOTE Original Ordering Provider: Nargis Vallecillo WBC 8.3 K/mm3 4.4-11.0 RBC 4.53 M/mm3 4.2-5.4 HGB 13.9 g/dL 12.0-15.0 HCT 40.5 % 37-47 MCV 89.4 fL 81-99 MCH 30.7 pg 27.0-32.0 MCHC 34.3 g/dL 32-36 RDW CV 12.4 % 11.6-14.6 RDW SD 40.6 fl 35.1-43.9 PLT 176 K/mm3 150-450 MPV 12.0 fl 6.2-12.0 NEUT% 69.7 % 47-70 LY% 24.7 % 19-41 MONO% 3.8 % 0-10 EO% 1.0 % 0-5 BASO% 0.4 % 0-1 IM GRAN % 0.400 % 0.0-0.9 IG% - Immature Granulocytes (promyelocytes, myelocytes and metamyelocytes) > 1% indicates that a LEFT SHIFT is Present. ABSOLUTE NEUT 5.8 X10 3/uL 2.0-7.7 ABSOLUTE LYMPH 2.06 X10 3/uL 0.83-4.51 NRBC, FLAGGED 0 % 0-5 Reviewed by NARGIS MCDONNELL IG HPV HR APTIMA 09/03/19 NOTE Original Ordering Provider: Nargis Vallecillo DIAGN . NEGATIVE FOR INTRAEPITHELIAL LESION OR MALIGNANCY. TRICHOMONAS VAGINALIS IS PRESENT. ADEQ . Satisfactory for evaluation. No endocervical component is identified. An endocervical component is not commonly seen in the patient. PERFORM . Jonathan Wei Waiter/Waitress Take Out (ASCP) TEST METHOD . This liquid based ThinPrep(R) pap test was screened with the use of an image guided system. COMM . . PAPSMR . The Pap smear is a screening test designed to aid in the detection of premalignant and malignant conditions of the uterine cervix. It is not a diagnostic procedure and should not be used as the sole means of detecting cervical cancer. Both false-positive and false-negative reports do occur. HPV APTIMA, HR Negative Negative This nucleic acid amplification test detects fourteen high- risk HPV types (16,18,31,33,35,39,45,51,52,56,58,59,66,68) without differentiation. Performed at: - [address] [id number] Bone Cooking Operator: Jacklyn Jimenez MD, Phone: [phone] Performed at: =[address] [id number] Bone Cooking Operator: Jacklyn Jimenez MD, Phone: [phone] Reviewed by NARGIS [facility] BY PCR 09/03/19 NOTE Original Ordering Provider: Nargis Vallecillo [facility] PCR Negative Negative BY PCR Negative Negative Reviewed by NARGIS Impression /Plan: 39-week intrauterine for repeat . Preparations in progress for delivery.
[2020-03-31] VITALS (16 sets, daily range): BP systolic 85–100; BP diastolic 42–62; PULSE 64–100; RESP 16; TEMP 36–36.6; O2SAT 95–100; BMI 34.5
[2020-03-31] MEDS: Lactated Ringers 1,000 ML 999 ML IV (05:40)
[2020-03-31 05:55] LABS: Absolute Lymphocyte Count 1.67 X10^3/uL (0.83-4.51); Basophil# 0.02 X10^3/uL; Basophil% 0.2 % (0-1); Eosinophil# 0.14 X10^3/uL; Eosinophils% 1.7 % (0-5); Hematocrit 32.2 % (37-47); Hemoglobin 11.4 g/dL (12.0-15.0); Lymphocyte # 1.67 X10^3/ul (4.0); Lymphocyte % 20.1 % (19-41); Mean Corp Hgb Conc 35.4 g/dL (32-36); Mean Corpuscular Hgb 32.3 pg (27.0-32.0); Mean Corpuscular Volume 91.2 fL (81-99); Mean Platelet Vol. 10.9 fl (6.2-12.0); Monocyte# 0.42 X10^3/uL; Monocyte% 5.1 % (0-10); NRBC Flagged by Analyzer 0 % (0-5); Neutrophil # 6.02 X10^3/uL (2.7-7.7); Neutrophil % 72.4 % (47-70); Platelet Count 167 K/mm3 (150-450); RBC Distribution Width SD 45.1 fl (35.1-43.9); Red Blood Count 3.53 M/mm3 (4.2-5.4); White Blood Count 8.3 K/mm3 (4.4-11.0)
[2020-03-31] MEDS: Acetaminophen 500 MG Tablet 1000 MG PO ×4 (05:55→23:57)
[2020-03-31 06:38] LABS: Amphetamine Urine VISTA NEGATIVE (<1000 ng/mL); Barbiturate Urine VISTA NEGATIVE (< 200 ng/mL); Benzodiazepine Urine VISTA NEGATIVE (< 200 ng/mL); Cocaine Urine VISTA NEGATIVE (< 300 ng/mL); Ecstacy Urine VISTA NEGATIVE (< 500 ng/mL); Methadone Urine VISTA NEGATIVE (< 300 ng/mL); PCP Urine VISTA NEGATIVE (< 25 ng/mL); THC Urine VISTA NEGATIVE (< 50 ng/mL); Vista UDS pH Range 6
[2020-03-31] MEDS: Lactated Ringers 1,000 ML 150 ML IV (06:45)
[2020-03-31] MEDS: Sodium Citrate/Citric Acid 30 ML UDC PO (06:45)
[2020-03-31] MEDS: Cefazolin 2 GM in 0.9% Normal Saline 100 ML IV (07:20)
--- NOTE | 2020-03-31 07:29 | OP.PCM_ITS ---
Delivery Classification: Scheduled Final TORSTEN: 04/07/20 Final TORSTEN Source: US <20 weeks Gestational age: 39 Weeks and 0 Days diesel mechanic helper: Darling Spicer Type of Anesthesia:: Spinal - With Duramorph Date of Procedure: 03/31/20 Pre-Operative Diagnosis: Prior Section and Desires Permanent Sterilization Post-Operative Diagnosis: Prior Section and Desires Permanent Sterilization Description of Procedure: Surgeon: Jose Vallecillo MD, FACOG Anesthesia: Ondina Strickland CRNA Procedure: Repeat Low Transverse Cervical Caesarean Section And Bilateral Tubal Occlusion with Filshie Clips Findings: Viable female infant with Apgars of/9 in occiput anterior presentation with clear amniotic fluid and normal three-vessel placenta. Indication: This is a 35-year-old who presents for her fourth at 39+ weeks gestation. care has otherwise been uneventful. The patient has been counseled regarding the risk and indications of this procedure including the possibility of bleeding infection and injury to surrounding structures such as bowel bladder. She also desires permanent sterilization. She has been counseled regarding the permanent nature of this procedure, the failure rate of 1 to 2%, and the availability of other nonpermanent control options. All questions were answered. Procedure: Patient was taken to the operating room where after spinal anesthesia was placed, the patient was prepped and draped in usual sterile fashion and a Freitas catheter was placed. The abdomen was entered through the patient's prior Pfannenstiel incision and peritoneum was entered bluntly. After developing a bladder flap on the lower uterine segment a low transverse incision was made on the uterus and head was easily delivered onto the operative field the nose mouth and oropharynx were bulb suctioned. Subsequently a viable female infant was born with Apgars of 8/9. The infant was noted to cry move all extremities vigorously on the operative field. The umbilical cord was doubly clamped and ligated and infant handed to the nursery personnel who were present for the delivery. Placenta was delivered and noted to be 3 vessels and normal. Uterus was exteriorized and remaining placental tissue was removed. The uterus was then closed in 2 layers first with running locked 0 Vicryl suture followed by a second imbricating layer with 0 Vicryl suture. 0 Vicryl suture was then used in a horizontal mattress interrupted fashion to affect final hemostasis of the uterine incision line. Normal fallopian tubes and ovaries were visualized and Filshie clips were placed approximately 2 cm from the uterine fundus on each fallopian tube. The uterus was returned to the pelvis. Hemostasis was noted and rectus abdominis muscles were reapproximated in the midline with interrupted Number 0 Vicryl suture in a horizontal mattress fashion. Fascia was closed with running Number 1 PDS Strata fix suture. Subcutaneous tissue was irrigated with copious amounts of saline solution and then closed with running 3-0 Vicryl suture. Skin was closed with 4-0 monocryl suture in a running subcuticular fashion. Steri strips and a Mepilex dressing were placed across the incision. The patient tolerated the procedure well and was taken to the recovery room in satisfactory condition. Sponge, needle, and instrument counts were all reportedly correct. EBL was less than 500 cc. Ancef 2 gms IV was given prior to the procedure. Spicemen to Pathology: None Complications: None Amniotic Fluid Description: Clear Placenta Disposition: [facility] Specimen(s) sent to pathology: None Drain: Freitas to straight drain Fluids Replaced: Crystalloid Cord Entanglement: None Cord Vessel Description: 3 Vessels Esitmated Blood Loss (ml): 500 cc Gender: Female (1 minute): 8 (5 minute): 9 Antibiotic Given: Ancef 2 grams IV x1 Pt instructed on risks of surgery: Bleeding, Infection, Permanency, Failure Rate of 1 to 2%, Injury to surrounding structure(s) including bowel and bladder, Availability of other non-permanent control options Complications: None - Admit VTE Documentation VTE Present on Admission: Yes VTE Mechan Device Prophylaxis: SCD's
--- NOTE | 2020-03-31 07:31 | DCINST_ITS ---
<Jose Vallecillo - Last Filed: 03/31/20 07:31> Discharge Diet: No Restrictions Discharge Activity: May not drive while taking narcotic pain medications., May Shower, May Take a Tub Bath May resume sexual activity in: 4-6 weeks Lifting Restrictions: 20 pounds Additional Activity Instructions:: Nothing in the vagina for 4-6 weeks. You may return to work/school in 6 weeks. Call your doctor if your incision/area has: Continuous Slow Oozing, Sudden Increased Bleeding, Increased Pain/ Swelling, Increased Redness, Foul Smelling Discharge Call your doctor if you observe: Fever of 101 or Higher, Inability to urinate, Inability to have a bowel movement, Using more than one pad per hour Additional Instructions: If you experience any of the following, contact your healthcare provider. * Bleeding that soaks a pad every hour for 2 hours * Fever 100.4 or higher * Unrelieved incision or abdominal pain * Swelling, redness, discharge or bleeding from your incision or episiotomy site * Your incision begins to separate * Problems urinating (including inability to urinate or burning while urinating). * Visual changes * Severe headache * Flu-like symptoms * Pain or redness in one of both of your breasts * Pain, warmth, tenderness or swelling in your legs, especially the calf area * Frequent nausea and vomiting * Symptoms of depression or anxiety If you experience any of the following, call 911 or go to the nearest Emergency Room. * Chest pain * Problems breathing * Seizure activity * Partial or complete paralysis of a body part, slurred speech, weakness or drooping of the face, or a sudden inability to walk or hold your balance Allergies/Adverse Reactions: Allergies No Known Allergies Allergy (Verified 03/30/20 11:12) Medications to take at Discharge Docusate Sodium [Colace] 100 mg PO BID PRN PRN #60 cap 03/31/20 Oxycodone [Oxyir] 5 mg PO Q6H PRN PRN 7 Days #20 tab 03/31/20 Ibuprofen [Motrin] 600 mg PO Q6H PRN 30 Days #60 tab 04/02/20 Ferrous Sulfate 325 mg PO BID #60 tab 04/03/20 Gabapentin [Neurontin] 300 mg PO TID #6 cap 04/03/20 The following prescriptions were given: Docusate Sodium [Colace] 100 mg PO BID PRN PRN #60 cap PRN Reason: Constipation Transmission Status: Received by [facility] Ferrous Sulfate 325 mg PO BID #60 tab Transmission Status: Pending to [facility] Ibuprofen [Motrin] 600 mg PO Q6H PRN 30 Days #60 tab PRN Reason: Pain Or Fever Transmission Status: Received by [facility] Gabapentin [Neurontin] 300 mg PO TID #6 cap Transmission Status: Pending to [facility] Oxycodone [Oxyir] 5 mg PO Q6H PRN PRN 7 Days #20 tab PRN Reason: Pain Score 6-10/10 Transmission Status: Received by [facility] Follow-Up: Call to make an appointment with your doctor for an incision check in 1-2 weeks. You will also need a 6 week post- follow up appointment. Test results from this visit will be discussed in further detail at your follow- up appointment, if applicable. Please Follow Up With: Jose Vallecillo MD - [phone] When: Call to make an appointment for an incision check in 2 weeks. Primary Care Physician: Care Physician,No Primary [Primary Care Provider] - <Neel Murrieta,Summer - Last Filed: 04/03/20 07:49> Additional Instructions: If you experience any of the following, contact your healthcare provider. * Bleeding that soaks a pad every hour for 2 hours * Fever 100.4 or higher * Unrelieved incision or abdominal pain * Swelling, redness, discharge or bleeding from your incision or episiotomy site * Your incision begins to separate * Problems urinating (including inability to urinate or burning while urinating). * Visual changes * Severe headache * Flu-like symptoms * Pain or redness in one of both of your breasts * Pain, warmth, tenderness or swelling in your legs, especially the calf area * Frequent nausea and vomiting * Symptoms of depression or anxiety If you experience any of the following, call 911 or go to the nearest Emergency Room. * Chest pain * Problems breathing * Seizure activity * Partial or complete paralysis of a body part, slurred speech, weakness or drooping of the face, or a sudden inability to walk or hold your balance Follow-Up: Call to make an appointment with your doctor for an incision check in 1-2 weeks. You will also need a 6 week post- follow up appointment. Test results from this visit will be discussed in further detail at your follow- up appointment, if applicable.
[2020-03-31] MEDS: Oxytocin 30 units/NS 500 ml 30 UNITS/500 ML IV.SOLN 167 UNITS IV (08:45)
[2020-03-31] MEDS: DiphenhydrAMINE 25 MG Capsule PO (10:15)
[2020-03-31] MEDS: proCHLORPERazine 10 MG/2 ML Vial IV (10:18)
[2020-03-31] MEDS: Lactated Ringers 1,000 ML 100 ML IV (12:09)
[2020-03-31] MEDS: Ketorolac 30 MG/ML Syringe IV ×2 (14:28→20:53)
--- NOTE | 2020-03-31 14:47 | CPS ---
LEFT IN ROOM, NURSING TO START
[2020-03-31] MEDS: Cefazolin 1 GM/50 ML BAG IV ×2 (18:11→23:57)
[2020-04-01] VITALS: BP 97/49; PULSE 84; RESP 16; TEMP 36.6
[2020-04-01] MEDS: Ketorolac 30 MG/ML Syringe IV (01:36)
[2020-04-01] MEDS: 0.9% Saline Lock 10 ML Syringe IV ×2 (01:37→09:03)
[2020-04-01 04:00] VITALS: BP 83/48; PULSE 72; RESP 16; TEMP 36.8
[2020-04-01 05:43] LABS: Hematocrit 27.6 % (37-47); Hemoglobin 9.4 g/dL (12.0-15.0); Mean Corp Hgb Conc 34.1 g/dL (32-36); Mean Corpuscular Hgb 30.7 pg (27.0-32.0); Mean Corpuscular Volume 90.2 fL (81-99); Mean Platelet Vol. 11.1 fl (6.2-12.0); Platelet Count 166 K/mm3 (150-450); RBC Distribution Width CV 13.6 % (11.6-14.6); RBC Distribution Width SD 44.9 fl (35.1-43.9); Red Blood Count 3.06 M/mm3 (4.2-5.4); White Blood Count 11.9 K/mm3 (4.4-11.0)
[2020-04-01] MEDS: Acetaminophen 500 MG Tablet 1000 MG PO ×3 (06:03→18:18)
[2020-04-01] MEDS: Senna/Docusate Sodium 1 Tablet PO (09:04)
[2020-04-01] MEDS: Ibuprofen 600 MG Tablet PO ×3 (09:12→21:52)
[2020-04-01] MEDS: oxyCODONE 5 MG Tablet PO ×4 (09:12→19:08)
[2020-04-01 09:22] VITALS: BP 89/50; PULSE 81; RESP 16; TEMP 36.4; O2SAT 97
--- NOTE | 2020-04-01 09:43 | PCM.PN.OB ---
Subjective: Patient without complaints. Tolerating diet well. Positive flatus. Wants to stay until tomorrow. Objective: Good urine output. Hemoglobin okay. - Physical Exam Vitals/I&O's: Vital Signs Temp Pulse Resp BP Pulse Ox 97.6 F L 81 16 89/50 L 97 04/01/20 09:22 04/01/20 09:22 04/01/20 09:22 04/01/20 09:22 04/01/20 09:22 Oxygen Delivery Method Room Air Weight: 207 lb 12.8 oz Body Mass Index (BMI) 34.5 Intake and Output for Last 24 Hours 03/30/20 03/31/20 04/01/20 23:59 23:59 23:59 Intake Total 2695 / 2695 50 / 50 Output Total 925 / 925 750 / 750 Balance 1770 / 1770 -700 / -700 Laboratory Results 04/01/20 05:30: WBC 11.9 H, RBC 3.06 L, Hgb 9.4 L, Hct 27.6 L, MCV 90.2, MCH 30.7, MCHC 34.1, RDW Std Deviation 44.9 H, RDW Coeff of Katie 13.6, Plt Count 166, MPV 11.1 Current Medications Acetaminophen (Tylenol) 1,000 mg PO Q6 [facility] Last Admin: 04/01/20 06:03 Dose: 1,000 mg Documented by: Bisacodyl (Dulcolax) 10 mg RECTAL UD PRN PRN Reason: If no BM Hydrocortisone (Hytone) 1 applic TOPICAL TID PRN PRN; Protocol PRN Reason: Discomfort Lactated Ringer's () 1,000 mls @ 100 mls/hr IV .Q10H [facility] Last Admin: 04/01/20 00:27 Dose: Not Given Documented by: Naloxone HCl 4 mg/ Dextrose 504 mls @ 0 mls/hr IV .Q0M PRN; Protocol PRN Reason: Respiratory depression Ibuprofen (Motrin) 600 mg PO Q6H [facility] Last Admin: 04/01/20 09:12 Dose: 600 mg Documented by: Methylergonovine Maleate (Methergine) 0.2 mg IM X1 PRN PRN Reason: Uterine Atony Naloxone HCl (Narcan) 0.02 mg IV Q1M PRN PRN Reason: RR <10 and pt unresponsive Ondansetron HCl (Zofran) 4 mg IV Q4H PRN PRN PRN Reason: Nausea Oxycodone HCl (Oxyir) 5 - 10 mg PO Q4H PRN PRN PRN Reason: Pain Score 4-10/10 Last Admin: 04/01/20 09:12 Dose: 5 mg Documented by: Prochlorperazine Edisylate (Compazine Iv) 10 mg IV Q6H PRN PRN PRN Reason: NAUSEA Last Admin: 03/31/20 10:18 Dose: 10 mg Documented by: Senna/Docusate Sodium (Senokot-S, Giselle-Colace) 0 tablet PO DAILY YOHANNES Last Admin: 04/01/20 09:04 Dose: 2 tablet Documented by: Simethicone (Mylicon) 80 mg PO PCHS PRN PRN Reason: Indigestion/stomach pain Sodium Chloride () 5 - 15 ml IV UD PRN PRN Reason: SALINE FLUSH Last Admin: 04/01/20 09:03 Dose: 10 ml Documented by: Medical Necessity - Tobacco Use Smoking Status: Former smoker Assessment/Plan All Active Problems 34 weeks gestation of (Acute) Doing well postoperative day #1 status post repeat and tubal ligation. Continuing present care. Anticipate release to home tomorrow.
[2020-04-01 15:00] VITALS: BP 97/45; PULSE 78; RESP 16; TEMP 36.4; O2SAT 98
[2020-04-01 20:55] VITALS: BP 111/44; PULSE 70; RESP 18; TEMP 36.6; O2SAT 98
[2020-04-02] MEDS: Acetaminophen 500 MG Tablet 1000 MG PO ×4 (00:09→19:29)
[2020-04-02] MEDS: oxyCODONE 5 MG Tablet PO ×9 (01:54→22:53)
--- NOTE | 2020-04-02 02:07 | NURSING ---
RN entered pt room to round on pt. Pt demeanor different then when RN was in previously, RN asked pt what was wrong. Pt states she is in pain, RN offered oxyir. Pt said she wanted that and didnt understand why I hadnt already given it to her. RN stated that it was a PRN medication and that it is not scheduled. Pt said well I wanted it. RN apologized for the miscommunication and offered to go get her the medication now, pt agreed. Wanted 5 mg oxy now and then 5 mg in 1 hour.
[2020-04-02 03:00] VITALS: BP 98/57; PULSE 70; RESP 16; TEMP 36.4
[2020-04-02] MEDS: Ibuprofen 600 MG Tablet PO ×4 (04:32→22:53)
--- NOTE | 2020-04-02 07:19 | PCM.PN.OB ---
Subjective: Post Objective: Feeling mild incisional discomfort. Has ambulated and voided. Denies fevers, chills, chest pain, shortness of breath, normal lochia. Bottle feeding - Physical Exam Vitals/I&O's: Vital Signs Temp Pulse Resp BP Pulse Ox 97.5 F L 70 16 98/57 L 98 04/02/20 03:00 04/02/20 03:00 04/02/20 03:00 04/02/20 03:00 04/01/20 20:55 Oxygen Delivery Method Room Air Weight: 207 lb 12.8 oz Body Mass Index (BMI) 34.5 Intake and Output for Last 24 Hours 03/31/20 04/01/20 04/02/20 23:59 23:59 23:59 Intake Total 2695 / 2695 50 / 50 Output Total 925 / 925 750 / 750 Balance 1770 / 1770 -700 / -700 General: Alert, Oriented x3, Cooperative HEENT: Atraumatic, PERRLA, EOMI, Normocephalic Abdomen: Bowel Sounds Present, Soft, Non Tender, - - incision c/d/i Extremities: Capillary Refill Less than 3 Seconds, No Calf Tenderness Skin: No rashes, No breakdown Psych/Mental Status: Normal Affect, Appropriate Current Medications Acetaminophen (Tylenol) 1,000 mg PO Q6 [facility] Last Admin: 04/02/20 06:15 Dose: 1,000 mg Documented by: Bisacodyl (Dulcolax) 10 mg RECTAL UD PRN PRN Reason: If no BM Gabapentin (Neurontin) 300 mg PO TIDCM [facility] Hydrocortisone (Hytone) 1 applic TOPICAL TID PRN PRN; Protocol PRN Reason: Discomfort Naloxone HCl 4 mg/ Dextrose 504 mls @ 0 mls/hr IV .Q0M PRN; Protocol PRN Reason: Respiratory depression Ibuprofen (Motrin) 600 mg PO Q6H [facility] Last Admin: 04/02/20 04:32 Dose: 600 mg Documented by: Methylergonovine Maleate (Methergine) 0.2 mg IM X1 PRN PRN Reason: Uterine Atony Naloxone HCl (Narcan) 0.02 mg IV Q1M PRN PRN Reason: RR <10 and pt unresponsive Ondansetron HCl (Zofran) 4 mg IV Q4H PRN PRN PRN Reason: Nausea Oxycodone HCl (Oxyir) 5 - 10 mg PO Q4H PRN PRN PRN Reason: Pain Score 4-10/10 Last Admin: 04/02/20 07:08 Dose: 5 mg Documented by: Prochlorperazine Edisylate (Compazine Iv) 10 mg IV Q6H PRN PRN PRN Reason: NAUSEA Last Admin: 03/31/20 10:18 Dose: 10 mg Documented by: Senna/Docusate Sodium (Senokot-S, Giselle-Colace) 0 tablet PO DAILY YOHANNES Last Admin: 04/01/20 09:04 Dose: 2 tablet Documented by: Simethicone (Mylicon) 80 mg PO PCHS PRN PRN Reason: Indigestion/stomach pain Last Admin: 04/01/20 19:08 Dose: 80 mg Documented by: Sodium Chloride () 5 - 15 ml IV UD PRN PRN Reason: SALINE FLUSH Last Admin: 04/01/20 09:03 Dose: 10 ml Documented by: Medical Necessity - Tobacco Use Smoking Status: Former smoker Assessment/Plan All Active Problems 34 weeks gestation of (Acute) POD#2 s/p RLTCS BTL. Bottle feeding. Undecided on control. Will start Neurontin TID. Home tomorrow Procedure Criteria Procedure Type: Elective COVID Risk Discussion: The surgeon/proceduralist and patient have discussed in detail the risk of exposure to and/or potential harm posed by the COVID-19 virus with having a surgery/procedure at this time versus the risk of delaying the surgery/procedure. It is not possible to know either the risk of delaying the surgery or procedure or chance of getting an infection with perfect accuracy, but a joint decision was made between the patient and the surgeon/proceduralist to proceed at this time with the scheduled surgery/procedure as indicated on the consent form.
[2020-04-02 08:31] VITALS: BP 97/63; PULSE 70; RESP 18; TEMP 36.2
[2020-04-02] MEDS: Gabapentin 300 MG Capsule PO ×3 (09:00→17:02)
[2020-04-02] MEDS: Senna/Docusate Sodium 1 Tablet PO (09:00)
[2020-04-02 14:46] VITALS: BP 100/59; PULSE 70; RESP 16; TEMP 36.6
--- NOTE | 2020-04-02 16:50 | CASEMGMT ---
Social Work Assessment Labor and Delivery Unit Patient Address: [address], [place] [address] Phone number: [phone] Date of Referral: 04/02/2020 Time of Referral: 609 Referred By: Dr. Vallecillo Date of Intervention: 04/02/2020 Time of Intervention: 1424 Reason for Referral: THC History obtained from: Medical records and mother of baby (MOB) Mel Chavira Household composition: ANALILIA reports to currently reside at [facility]. MOB plans to take baby to his facility. MOB reports that normally she would live in a home with her children. Patient's parent/guardian status: ANALILIA is a 35-year-old single female involved with father of baby (FOB) Brigido Hand who is age 39. ANALILIA and FOB have been together for 2 years per MOB report. [place]utz baby is the first child for parents together. Record indicates FOB has 6 other children ranging ranging in ages 5 to 18 years old. ANALILIA now has a total of 4 children. MOB children include: Leobardo, born August 2001; Rashad, born May 2005; Jaimee Ramachandran, born 07/18/2017; baby girl Rabia Hand, born 03/31/2020. Each child has a different father. At this time Jaimee is living with her maternal grandfather, and Rashad is residing with his own father (MOB reports to have shared parenting with Rashad), and Leobardo is age 18 and stays with his girlfriend or at Rashad's father's home. ANALILIA denies losing custody of any of her children. Medical History: ANALILIA is G6, P3 to 4 after delivering Rabia. ANALILIA started care at 10 weeks. Noted in record a gap in care between 12 and 21 weeks. baby delivered at 8 pounds 6 ounces. Apgars 8 and 9 at 1 and 5 minutes of life. Educational Status: MOB reports to have an associates degree in human resources. Reports ability to read right and understand what is written read. 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 Supplies: MOB reports to have needed baby supplies at [facility] including a pack and play, clothing, bottles, diapers, and a car seat. Reports ability to purchase formula. Childcare/Caregiver(s): ANALILIA plans to be the primary caregiver. Transportation: ANALILIA reports she normally drives but now that she is residing at [facility] relies on a caseworker intake or family for transportation. Programs/Agencies Involved: ANALILIA reports to have the food card and medical card through [employer] family services. Reports to be active with [facility]. Currently resides at [facility] and her counselor is Reema rangel. ANALILIA denies referral to help me grow. Reports she had help me grow with her first son and feels that she is doing okay without the service. Children Services/Legal Issues: ANALILIA reports to be on probation with Jeremiah through through the [facility] probation department and is started on December 302019. MOB reports to be on probation for charges related to drug trafficking. MOB reports to have an active children services case with [facility]. Mary Sepulveda is the machine adjuster leader case trim. Behavioral Health Issues: Mental Health History: MOB reports a history of anxiety. No reports of history of suicidal ideation reported. Denies any history of depression or anxiety. Substance Use History: ANALILIA reports history of using alcohol and cocaine prior to . ANALILIA reports it was during this time that she got into trouble legally. ANALILIA reports to have a long history of marijuana usage, and that she used marijuana with all of her pregnancies. MOB reports marijuana usage during this helped with nausea. Last usage of marijuana is reported to be January 04, 2020. ANALILIA denies any other illicit drug usage including heroin, fentanyl, methamphetamines, or any type of narcotic prescription pills. Reports quit smoking on January 26, 2020. Family History: Not discussed. Drug Screens: MOB positive for marijuana on September 11, 2019, November 27, 2019. Negative for any substances on 02/13/2028 and 03/31/2020. Baby's urine drug screen is negative after delivery meconium is pending. Family/Social Stressors: ANALILIA spent time in the [facility] long term during this , is now on probation, and has been residing at a drug and alcohol residential facility for the last 30 days. ANALILIA is now working with children services and probation. ANALILIA reports that she has never gotten into trouble before now and that this whole situation has been very embarrassing and hard to deal with. ANALILIA reports that she plans to follow all the rules, to use all the resources out there and to never let something like this happen again. Support Systems: MOB reports her father is her go to person at this point for both emotional Ament and material support. MOB reports her counselor at the [facility] is supportive. MOB also reports, that despite not wanting to admit this, children services has been supportive and helpful to MOB. Depression/Shaken Baby/Safe Sleeping MOB educated to depression, risk factors, and importance of letting others know if symptoms arise. Educated MOB to shaken baby prevention and the importance of safe sleeping. ASSESSMENT: Met with MOB in her room. MOB holding and feeding the baby during social work assessment. MOB did handle the baby appropriately and gently. MOB change the baby's clothes as there was spit up and did this appropriately. MOB gazed and smiled at the baby, as well as talk to the baby in a gentle manner. MOB reports to have needed supplies to care for the baby and to have adequate housing while she is residing at [facility]. MOB plans to return to [facility] with the baby and continue to work with said agency while MOB is looking for a more permanent place to live. MOB reports to feel she is connected with adequate support services in the community, and reports that her last usage of any type of substance was in December 2019. Educated him MOB to need to call children services due to positive drug screens during , but that uncertain anything will really change for MOB due to MOB already having an active case with children services. Did let MOB know that should the meconium drug screen come back positive for any drugs of abuse this will have to be reported to children services. MOB did inquire as to how far back this will look at. Educated mom to the drug screen possibly going back into the second trimester. Emotional support and encouragement provided to MOB this date. MOB excepting of community resource list and information on depression. MOB reports she has been in communication with her caseworker intake at the [facility] and there are no issues with MOB returning at time of discharge. MOB plans for either her father or the caseworker intake to transport MOB back to the [facility]. Safe Plan of Care for infant related to substance use: MOB plan is to continue with the [facility] and once transition into her own home will continue with counseling at [facility]. PLAN: MOB and baby will discharge back to the [facility] when ready for discharge. There is already an active children services case with this family, but this racebook writer will alert children services to the of the baby. MOB is connected with various community resources, and has been provided with community resource list to use at home going -CLARE Chester MSW *Information documented in this assessment generated with [employer]*
--- NOTE | 2020-04-02 17:00 | CASEMGMT ---
Social Work Laobr and Delivery Unit Called [facility] ([facility]) at [phone] and spoke with Teri Castellanos in the Intake department. 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 Reported negative drugs screens as well, including the baby's urine; pending meconium. Reported there is an active case open for mother of baby's older minor children. Updated on discharge timeframe. No other services requested or indicated other than monitoring for meconium drug screen results. Plan: MOB and baby to discharge when ready to leave hospital. MOB plans to take baby back to residential treatment center where MOB has been residing for the last month. Community resource information has been provided to MOB. -MASON Chester, DATACAP DEVELOPER
[2020-04-02 20:38] VITALS: BP 107/66; PULSE 81; RESP 16; TEMP 36.3
--- NOTE | 2020-04-02 21:32 | NURSING ---
this RN was told in report per shanita RN that pt has been up and ambulating independently. post op ambulation intervention not completed. this RN unsure of first ambulation time.
[2020-04-03 01:25] VITALS: BP 96/42; PULSE 76; RESP 16; TEMP 36.5
[2020-04-03] MEDS: Acetaminophen 500 MG Tablet 1000 MG PO ×2 (01:27→07:59)
[2020-04-03] MEDS: oxyCODONE 5 MG Tablet PO ×3 (03:44→08:50)
[2020-04-03] MEDS: Ibuprofen 600 MG Tablet PO ×2 (04:49→10:42)
--- NOTE | 2020-04-03 07:40 | PCM.PN.OB ---
Patient Problems: Active and Suspected Problems Delivery by section (Acute) Subjective: No issues overnight, but reports continued incisional pain. Pain improved some with Gabapentin. She is bottlefeeding. Denies heavy lochia. + flatus, no bowel movement yet. Objective: AVSS - Physical Exam Vitals/I&O's: Vital Signs Temp Pulse Resp BP Pulse Ox 97.7 F L 76 16 96/42 L 98 04/03/20 01:25 04/03/20 01:25 04/03/20 01:25 04/03/20 01:25 04/01/20 20:55 Oxygen Delivery Method Room Air Weight: 94.256 kg Body Mass Index (BMI) 34.5 Intake and Output for Last 24 Hours 04/01/20 04/02/20 04/03/20 23:59 23:59 23:59 Intake Total 50 / 50 Output Total 750 / 750 Balance -700 / -700 General: Alert, Oriented x3, Cooperative, No apparent distress HEENT: Atraumatic, Normocephalic Lungs: Clear to auscultation, Normal air movement Cardiovascular: Regular rate, Regular Rhythm, Normal S1, Normal S2 Abdomen: Bowel Sounds Present, Soft, Non Tender, Non-Distended, - - Fundus firm and nontender, incisional dressing removed with steristrips intact, no incisional erythema, warm or signs of separation Extremities: No edema, No Calf Tenderness Neurological: Neuro grossly intact Psych/Mental Status: Normal Affect, Appropriate, Alert and oriented to time, place, person, mood and affect Current Medications Acetaminophen (Tylenol) 1,000 mg PO Q6 [facility] Last Admin: 04/03/20 01:27 Dose: 1,000 mg Documented by: Bisacodyl (Dulcolax) 10 mg RECTAL UD PRN PRN Reason: If no BM Gabapentin (Neurontin) 300 mg PO TIDCM [facility] Last Admin: 04/02/20 17:02 Dose: 300 mg Documented by: Hydrocortisone (Hytone) 1 applic TOPICAL TID PRN PRN; Protocol PRN Reason: Discomfort Naloxone HCl 4 mg/ Dextrose 504 mls @ 0 mls/hr IV .Q0M PRN; Protocol PRN Reason: Respiratory depression Ibuprofen (Motrin) 600 mg PO Q6H [facility] Last Admin: 04/03/20 04:49 Dose: 600 mg Documented by: Methylergonovine Maleate (Methergine) 0.2 mg IM X1 PRN PRN Reason: Uterine Atony Naloxone HCl (Narcan) 0.02 mg IV Q1M PRN PRN Reason: RR <10 and pt unresponsive Ondansetron HCl (Zofran) 4 mg IV Q4H PRN PRN PRN Reason: Nausea Oxycodone HCl (Oxyir) 5 - 10 mg PO Q4H PRN PRN PRN Reason: Pain Score 4-10/10 Last Admin: 04/03/20 03:44 Dose: 5 mg Documented by: Prochlorperazine Edisylate (Compazine Iv) 10 mg IV Q6H PRN PRN PRN Reason: NAUSEA Last Admin: 03/31/20 10:18 Dose: 10 mg Documented by: Senna/Docusate Sodium (Senokot-S, Giselle-Colace) 0 tablet PO DAILY YOHANNES Last Admin: 04/02/20 09:00 Dose: 2 tablet Documented by: Simethicone (Mylicon) 80 mg PO PCHS PRN PRN Reason: Indigestion/stomach pain Last Admin: 04/02/20 13:45 Dose: 80 mg Documented by: Sodium Chloride () 5 - 15 ml IV UD PRN PRN Reason: SALINE FLUSH Last Admin: 04/01/20 09:03 Dose: 10 ml Documented by: Medical Necessity - Tobacco Use Smoking Status: Former smoker Assessment/Plan All Active Problems Delivery by section (Acute) 35yo POD#3 s/p RLTCS with tubal sterilization -Plan for d/c home today
--- NOTE | 2020-04-03 07:43 | DS.PCM_ITS ---
Discharge Date and Diagnosis - Problem List Patient Problems: Active and Suspected Problems Delivery by section (Acute) Date of Admission: 03/31/20 Date of Discharge: 04/03/20 - Primary Discharge Diagnosis Acute Problems: Active Problems Delivery by section (Acute) Hospital Course and Treatment Operations: - - section Bilateral tubal occlusion with Filshie clips Procedures: None Summary of Care Provided: The patient is a 35 year old F 6 para 3023 admitted for scheduled repeat section with tubal sterilization. She underwent an uncomplicated section with Filshie clip tubal occlusion. She was out of bed, ambulating, tolerating PO and passing flatus. She was discharged to home on post-operative day #3. Patient Problems: Active and Suspected Problems Delivery by section (Acute) - Physical Exam Vitals/I&O's: Vital Signs Temp Pulse Resp BP Pulse Ox 97.7 F L 76 16 96/42 L 98 04/03/20 01:25 04/03/20 01:25 04/03/20 01:25 04/03/20 01:25 04/01/20 20:55 Oxygen Delivery Method Room Air Weight: 94.256 kg Body Mass Index (BMI) 34.5 Intake and Output for Last 24 Hours 04/01/20 04/02/20 04/03/20 23:59 23:59 23:59 Intake Total 50 / 50 Output Total 750 / 750 Balance -700 / -700 Current Medications Acetaminophen (Tylenol) 1,000 mg PO Q6 [facility] Last Admin: 04/03/20 01:27 Dose: 1,000 mg Documented by: Bisacodyl (Dulcolax) 10 mg RECTAL UD PRN PRN Reason: If no BM Gabapentin (Neurontin) 300 mg PO TIDCM [facility] Last Admin: 04/02/20 17:02 Dose: 300 mg Documented by: Hydrocortisone (Hytone) 1 applic TOPICAL TID PRN PRN; Protocol PRN Reason: Discomfort Naloxone HCl 4 mg/ Dextrose 504 mls @ 0 mls/hr IV .Q0M PRN; Protocol PRN Reason: Respiratory depression Ibuprofen (Motrin) 600 mg PO Q6H [facility] Last Admin: 04/03/20 04:49 Dose: 600 mg Documented by: Methylergonovine Maleate (Methergine) 0.2 mg IM X1 PRN PRN Reason: Uterine Atony Naloxone HCl (Narcan) 0.02 mg IV Q1M PRN PRN Reason: RR <10 and pt unresponsive Ondansetron HCl (Zofran) 4 mg IV Q4H PRN PRN PRN Reason: Nausea Oxycodone HCl (Oxyir) 5 - 10 mg PO Q4H PRN PRN PRN Reason: Pain Score 4-10/10 Last Admin: 04/03/20 03:44 Dose: 5 mg Documented by: Prochlorperazine Edisylate (Compazine Iv) 10 mg IV Q6H PRN PRN PRN Reason: NAUSEA Last Admin: 03/31/20 10:18 Dose: 10 mg Documented by: Senna/Docusate Sodium (Senokot-S, Giselle-Colace) 0 tablet PO DAILY YOHANNES Last Admin: 04/02/20 09:00 Dose: 2 tablet Documented by: Simethicone (Mylicon) 80 mg PO PCHS PRN PRN Reason: Indigestion/stomach pain Last Admin: 04/02/20 13:45 Dose: 80 mg Documented by: Sodium Chloride () 5 - 15 ml IV UD PRN PRN Reason: SALINE FLUSH Last Admin: 04/01/20 09:03 Dose: 10 ml Documented by: Discharge Diet: No Restrictions Discharge Activity: May not drive while taking narcotic pain medications., May Shower, May Take a Tub Bath May resume sexual activity in: 4-6 weeks Additional Activity Instructions:: Nothing in the vagina for 4-6 weeks. You may return to work/school in 6 weeks. Call your doctor if your incision/area has: Continuous Slow Oozing, Sudden Increased Bleeding, Increased Pain/ Swelling, Increased Redness, Foul Smelling Discharge Call your doctor if you observe: Fever of 101 or Higher, Inability to urinate, Inability to have a bowel movement, Using more than one pad per hour Home Medications: Medications to take at Discharge Docusate Sodium [Colace] 100 mg PO BID PRN PRN #60 cap 03/31/20 Oxycodone [Oxyir] 5 mg PO Q6H PRN PRN 7 Days #20 tab 03/31/20 Ibuprofen [Motrin] 600 mg PO Q6H PRN 30 Days #60 tab 04/02/20 Ferrous Sulfate 325 mg PO BID #60 tab 08/08/20 Gabapentin [Neurontin] 300 mg PO TID #6 cap 04/03/20 Following Prescriptions Were Given to Patient: Docusate Sodium [Colace] 100 mg PO BID PRN PRN #60 cap PRN Reason: Constipation Transmission Status: Received by [facility] Ferrous Sulfate 325 mg PO BID #60 tab Transmission Status: Pending to [facility] Ibuprofen [Motrin] 600 mg PO Q6H PRN 30 Days #60 tab PRN Reason: Pain Or Fever Transmission Status: Received by [facility] Gabapentin [Neurontin] 300 mg PO TID #6 cap Transmission Status: Pending to [facility] Oxycodone [Oxyir] 5 mg PO Q6H PRN PRN 7 Days #20 tab PRN Reason: Pain Score 6-10/10 Transmission Status: Received by [facility] Primary Care Physician: Care Physician,No Primary [Primary Care Provider] - Please Follow Up With: Jose Vallecillo MD - [phone] When: Call to make an appointment for an incision check in 2 weeks. Medical Necessity - Tobacco Use Smoking Status: Former smoker Meaningful Use Info Meaningful Use Diagnoses (Choose all that apply): None applicable
[2020-04-03 07:45] VITALS: BP 98/64; PULSE 69; RESP 14; TEMP 36.5
[2020-04-03] MEDS: Gabapentin 300 MG Capsule PO ×2 (07:59→12:14)
[2020-04-03] MEDS: Senna/Docusate Sodium 1 Tablet PO (10:43)
--- NOTE | 2020-04-03 13:05 | NURSING ---
At discharge this RN instructed MOB to check and tighten car seat straps. MOB stated No, she is fine. This RN instruced MOB that baby's car seat straps need to be tighted before driving in car. Also, instructed FOB to check and tighten car seat straps and he stated Ok. Then MOB placed car seat base and baby in car seat in car.
[2020-04-03 13:10] VITALS: BP 126/78; PULSE 90; RESP 14; TEMP 36.4
== END 2020-04-03 13:45 | disposition home or self-care (01) | DRG 539 ==
PROVIDERS: Admitting Provider Obstetrics & Gynecology; Visit Provider Obstetrics & Gynecology
PROC: 10D00Z1 Extraction of Products of Conception, Low, Open Approach (ICD-10-PCS; CPT 59514; principal; 2020-03-31 07:15)
DX: O34.211 Maternal care for low transverse scar from previous cesarean delivery (principal); O99.830 Other infection carrier state complicating pregnancy; B18.2 Chronic viral hepatitis C; O99.324 Drug use complicating childbirth; F12.90 Cannabis use, unspecified, uncomplicated; O99.334 Smoking (tobacco) complicating childbirth; F17.200 Nicotine dependence, unspecified, uncomplicated; Z3A.39 39 weeks gestation of pregnancy; Z37.0 Single live birth; Z30.2 Encounter for sterilization
CPT/HCPCS: 59025; 59050; 80307; 85025; 85027; 86850; 86900; 86901; 87635; 94799; 99218; 99251; J7120; A4216; G0378; G0463; J2405; U0003

== ENCOUNTER → 2020-05-12 | Outpatient (CLI) | payer MEDICAID, SELFPAY ==
[2020-03-31 05:27] VITALS: BMI 34.5
== END | disposition home or self-care (01) ==
PROVIDERS: Visit Provider Obstetrics & Gynecology
DX: Z11.3 Encounter for screening for infections with a predominantly sexual mode of transmission (principal)

== ENCOUNTER 2023-03-27 17:43 | Emergency (ER) | payer MEDICAID, SELFPAY ==
[2023-03-27 17:44] VITALS: BP 141/89; PULSE 72; RESP 14; TEMP 36.1; O2SAT 100; BMI 30.8
--- NOTE | 2023-03-27 18:28 | EKG12_ITS ---
Test Reason : CP Blood Pressure : / mmHG Vent. Rate : 062 BPM Atrial Rate : 062 BPM P-R Int : 136 ms QRS Dur : 088 ms QT Int : 414 ms P-R-T Axes : 060 071 023 degrees QTc Int : 420 ms Normal sinus rhythm Normal ECG Confirmed by HANH GUY, DINORA ([id number]), newspaper copy editor KOSTA JOHNSTON ([id number]) on 03/29/2023 8:55:29 AM Referred By: BASIA Confirmed By:BEL SCHAFER MD
--- NOTE | 2023-03-27 18:29 | ED.VIS.CHEST ---
HPI History of Present Illness Chief Complaint: Chest Pain Informant: patient Onset/Context/Timing Onset: Today Activity at onset: gradual Narrative Narrative: Patient presents with left upper chest pain that started earlier today. It is gradual in onset. Patient states she initially thought she may have pulled a muscle, but denies any known injury. She does report shortness of breath. She states that when she first stands up she will see fireflies. PFSH PFSH Medical History no medical history no medical history Home Medications docusate sodium 100 mg capsule 100 mg PO BID PRN PRN Constipation #60 caps 03/31/20 [Rx Last Taken Unknown] ferrous sulfate 325 mg (65 mg iron) tablet 325 mg PO BID #60 tabs 04/03/20 [Rx Last Taken Unknown] gabapentin 300 mg capsule 300 mg PO TID #6 caps 04/03/20 [Rx Last Taken Unknown] prednisone 20 mg tablet 40 mg (2 x 20 mg) PO DAILY #8 tabs 03/27/23 [Rx Last Taken Unknown] Allergy/AdvReac Type Severity Reaction Status Date / Time No Known Allergies Allergy Verified 03/30/20 11:12 Social History Smoking Status: Current every day smoker tobacco type: cigarettes ROS ROS ED Constitutional Constitutional ED: Denies chills or fever(s) Eyes Eyes: Denies change in vision or discharge from eye(s) ENT ENT ED: Denies discharge from eye(s), rhinorrhea or sore throat Cardiovascular Cardiovascular: Reports chest pain; Denies palpitations Respiratory/Chest Respiratory/Chest: Reports dyspnea; Denies cough Gastrointestinal Gastrointestinal: Denies abdominal pain, nausea or vomiting Genitourinary Genitourinary ED: Denies dysuria Musculoskeletal Musculoskeletal: Reports back pain; Denies extremity pain Integumentary Denies Abrasions or rash Neurologic Neurologic: Denies headache(s) or weakness Psychiatric Psychiatric: Denies anxiety or depression Allergic/Immunologic Allergic/Immunologic ED: Denies lip swelling or urticaria EXAM Physical Exam Const Vital Signs: 03/27/23 17:44 03/27/23 18:06 03/27/23 18:44 Temperature 97 F L Temperature Source Temporal Pulse Rate 72 Respiratory Rate 14 Respiratory Effort Short of Breath Blood Pressure 141/89 H Blood Pressure Mean 106 Pulse Ox 100 Oxygen Delivery Method Room Air Room Air Positive well nourished and well developed General Appearance ED: well developed HEENT Reports normocephalic and head/scalp atraumatic Eyes PERRL and EOMs intact bilaterally Neck supple Chest Wall inspection of chest normal and palpation of chest normal Resp normal respiratory effort and clear to auscultation bilaterally Cardio regular rate and regular rhythm GI normal to inspection, nondistended, normoactive bowel sounds Palpation: soft Extremity normal to inspection Neuro oriented x3 and no sensory deficits noted Sensorium / Orientation: alert Motor Exam: strength 5/5 throughout Psych Mood & Affect: anxious Skin no rashes or lesions noted Heart Score History: Moderately Suspicious ECG: Normal Age: </= 45 years Risk Factors: No Risk Factors Troponin: </= Normal Limit Score: 1 MDM MDM MDM Narrative Medical decision making narrative: Patient placed on environmental monitoring specialist. Patient given aspirin along with morphine and Zofran for pain control. Labwork obtained to evaluate for leukocytosis, anemia, and electrolyte derangement. EKG obtained to evaluate for cardiac arrhythmia/ischemia. Chest x-ray obtained to evaluate for acute lung pathology, cardiac size, or mediastinal abnormality. Lab Data Attestation: I reviewed the patient's lab results. Labs: Laboratory Results - last 24 hr 03/27/23 18:35 WBC 12.7 H RBC 4.44 Hgb 13.6 Hct 40.7 MCV 91.7 MCH 30.6 MCHC 33.4 RDW Std Deviation 43.4 RDW Coeff of Katie 13.2 Plt Count 188 MPV 11.4 Immature Gran % (Auto) 0.600 Neut % (Auto) 78.1 H Lymph % (Auto) 16.1 L [place] % (Auto) 3.9 Eos % (Auto) 0.9 Baso % (Auto) 0.4 Absolute Neuts (auto) 9.9 H Absolute Lymphs (auto) 2.05 Nucleated RBC % 0 D-Dimer Quant (PE/DVT) 0.34 Sodium 139 Potassium 3.2 L Chloride 107 Carbon Dioxide 26.0 Anion Gap 6 BUN 9 Creatinine 0.90 Estim Creat Clear Calc 75.52 Est GFR (MDRD) Af Amer 89 Est GFR (MDRD) Non-Af 74 BUN/Creatinine Ratio 10.0 Glucose 123 H Calcium 8.8 Troponin I High Sens < 3 L Radiography Chest X-Ray - ED: 1 View, Read by ED Physician, Normal, Heart, Lungs and Mediastinum Diagnostic Testing: Clinical Impression(s) from Imaging Studies Chest X-Ray 03/27/23 18:44 IMPRESSION: No acute radiographic abnormalities. Electronically Signed: Ronaldo Cabrera MD at 18:56 EDT , EKG Initial EKG: Attestation: I personally reviewed and interpreted this EKG as follows: Interpretation: Sinus Rhythm (Sinus at 62 with no acute ischemia.) Differential Diagnosis Chest pain/SOB: pulmonary embolism Reason(s) PE less likely: Positive for D-Dimer negative, ACS ACS: Positive for no evidence of ACS based on cardiac biomarkers and EKG without ischemia and pneumothorax Reason(s) pneumothorax less likely: Positive for bilateral breath sounds and [employer]ERTER withhout PTX Treatment and Re-Evaluation :: CBC reveals a white count of 12.7 with 78% neutrophils. Hemoglobin is normal at 13.6. That is reveal slightly low potassium at 3.2. Renal function is normal. Troponin is normal at less than 3. D-dimer is normal at 0.34. Portable chest x-ray per my interpretation reveals no acute findings. Radiology interpretation is reviewed and agrees. EKG is sinus with no ischemia. On repeat evaluation patient sitting upright in bed. Test results are discussed with her. She is reassured with her findings. I will treat her with prednisone for pleurisy. Return instructions were provided. Discharge Plan Triage Chief Complaint: Chest Pain ED Provider: Courtney Greene Dx/Rx/DC Orders Clinical Impression: Pleurisy Instructions: ED Pleurisy Prescriptions: New prednisone 20 mg tablet 40 mg PO DAILY Qty: 8 0RF No Action docusate sodium 100 MG capsule 100 mg PO BID PRN PRN (Reason: Constipation) Qty: 60 1RF ferrous sulfate 325 MG tablet 325 mg PO BID Qty: 60 0RF gabapentin 300 MG capsule 300 mg PO TID Qty: 6 0RF Primary Care Provider: Care Physician,No Primary Referrals: Henry Stone MD [Med Staff - Active Staff] - As Needed Care Physician,No Primary [Primary Care Provider] - Disposition Disposition: Home, Self Care
[2023-03-27] MEDS: Aspirin 81 MG TAB.CHEW 324 MG PO (18:34)
[2023-03-27] MEDS: Ondansetron 4 MG/2 ML Vial IV (18:35)
[2023-03-27] MEDS: Morphine 4 MG/ML Syringe IV (18:36)
[2023-03-27] MEDS: 0.9% Normal Saline 1,000 ML 150 ML IV (18:36)
--- NOTE | 2023-03-27 18:44 | RAD_ITS ---
INDICATION: chest pain EXAMINATION/TECHNIQUE: X-RAY - XR Chest 1 View COMPARISON: None. FINDINGS: The lungs are clear. The cardiomediastinal silhouette is unremarkable. No pleural effusion or pneumothorax. No acute osseous abnormalities. RAD/Chest 1 View (Portable) IMPRESSION: No acute radiographic abnormalities. Electronically Signed: Ronaldo Cabrera MD at 18:56 EDT ,
[2023-03-27 19:08] LABS: Absolute Lymphocyte Count 2.05 X10^3/uL (0.83-4.51); Absolute Neutrophil Count 9.9 X10^3/uL (2.0-7.7); Basophil# 0.05 X10^3/uL; Basophil% 0.4 % (0-1); Eosinophil# 0.12 X10^3/uL; Eosinophils% 0.9 % (0-5); Hematocrit 40.7 % (37-47); Hemoglobin 13.6 g/dL (12.0-15.0); Lymphocyte # 2.05 X10^3/ul (0.83-4.51); Lymphocyte % 16.1 % (19-41); Mean Corp Hgb Conc 33.4 g/dL (32-36); Mean Corpuscular Hgb 30.6 pg (27.0-32.0); Mean Corpuscular Volume 91.7 fL (81-99); Mean Platelet Vol. 11.4 fl (6.2-12.0); Monocyte# 0.49 X10^3/uL; Monocyte% 3.9 % (0-10); NRBC Flagged by Analyzer 0 % (0-5); Neutrophil # 9.93 X10^3/uL (2.7-7.7); Neutrophil % 78.1 % (47-70); Platelet Count 188 K/mm3 (150-450); RBC Distribution Width CV 13.2 % (11.6-14.6); RBC Distribution Width SD 43.4 fl (35.1-43.9); Red Blood Count 4.44 M/mm3 (4.2-5.4); White Blood Count 12.7 K/mm3 (4.4-11.0)
[2023-03-27 19:16] LABS: Anion Gap 6 (5-15); BUN 9 mg/dL (7-18); Calcium,Total 8.8 mg/dL (8.5-10.1); Chloride 107 mmol/L (98-107); EST Glomerular Filtration Rate 74 mL/min (>60); Est Glom Filt Rate - Afr Amer 89 mL/min (>60); Estimated Creatinine Clearance 75.52 ml/min; Glucose 123 mg/dL (74-106); Potassium 3.2 mmol/L (3.5-5.1); Sodium Level 139 mmol/L (136-145); Troponin-I HS < 3 pg/mL (3.0-54.0)
[2023-03-27 19:24] LABS: D-Dimer Quantitative (DVT/PE) 0.34 FEU/ug/m (0.27-0.49)
[2023-03-27] MEDS: predniSONE 20 MG Tablet 40 MG PO (20:14)
[2023-03-27 20:16] VITALS: BP 121/65; PULSE 71; RESP 17; O2SAT 98
== END 2023-03-27 20:17 | disposition home or self-care (01) ==
PROVIDERS: Emergency Provider Emergency Medicine; Visit Provider Emergency Medicine
DX: R09.1 Pleurisy (principal); F17.210 Nicotine dependence, cigarettes, uncomplicated
CPT/HCPCS: 71045; 80048; 84484; 85025; 85379; 93005; 96361; 96374; 96375; 99285; J7030; A4216; J2405

== ENCOUNTER 2024-07-05 12:46 | Emergency (ER) | payer MEDICAID, SELFPAY ==
[2024-07-05 12:47] VITALS: BP 135/82; PULSE 75; RESP 18; TEMP 36.5; O2SAT 98; BMI 31.2
[2024-07-05] MEDS: Ondansetron 4 MG/2 ML Vial IV (13:22)
[2024-07-05] MEDS: 0.9% Normal Saline (1000mL) 1,000 ML 999 ML IV (13:22)
[2024-07-05] MEDS: Ketorolac 15 MG/ML Vial IV (13:24)
[2024-07-05 13:43] LABS: Absolute Lymphocyte Count 1.56 X10^3/uL (0.83-4.51); Absolute Neutrophil Count 11.9 X10^3/uL (2.0-7.7); Basophil# 0.07 X10^3/uL; Basophil% 0.5 % (0-1); Eosinophil# 0.02 X10^3/uL; Eosinophils% 0.1 % (0-5); Hematocrit 44.5 % (37-47); Hemoglobin 15.5 g/dL (12.0-15.0); Lymphocyte # 1.56 X10^3/ul (0.83-4.51); Lymphocyte % 11.2 % (19-41); Mean Corp Hgb Conc 34.8 g/dL (32-36); Mean Corpuscular Hgb 31.1 pg (27.0-32.0); Mean Corpuscular Volume 89.2 fL (81-99); Mean Platelet Vol. 11.3 fl (6.2-12.0); Monocyte# 0.42 X10^3/uL; NRBC Flagged by Analyzer 0 % (0-5); Neutrophil # 11.85 X10^3/uL (2.7-7.7); Neutrophil % 84.7 % (47-70); Platelet Count 219 K/mm3 (150-450); RBC Distribution Width CV 13.3 % (11.6-14.6); RBC Distribution Width SD 43.6 fl (35.1-43.9); Red Blood Count 4.99 M/mm3 (4.2-5.4)
[2024-07-05 13:46] LABS: ALB/GLOB Ratio 1.1 RATIO (0.9-2.4); AST(SGOT) 15 U/L (15-37); Alanine Aminotransfer ALT/SGPT 24 U/L (13-56); Albumin, Serum 4.1 g/dL (3.2-5.0); Alkaline Phosphatase 70 U/L (45-117); Anion Gap 8 (5-15); BUN 7 mg/dL (7-18); BUN/Creat Ratio 8.3 RATIO (10-20); Calcium,Total 9.1 mg/dL (8.5-10.1); Chloride 112 mmol/L (98-107); Creatinine, Serum 0.84 mg/dL (0.55-1.02); EST Glomerular Filtration Rate 79 mL/min (>60); Est Glom Filt Rate - Afr Amer 96 mL/min (>60); Estimated Creatinine Clearance 92.54 ml/min; Globulin 3.9 g/dL (2.2-4.2); Glucose 112 mg/dL (74-106); Lipase 24 U/L (13-75); Potassium 3.9 mmol/L (3.5-5.1); Sodium Level 141 mmol/L (136-145)
[2024-07-05 14:18] VITALS: TEMP 36.9
[2024-07-05 14:25] LABS: Red Blood Cells-Urine 0 SEEN /hpf (0-5)
[2024-07-05 14:36] LABS: Color, Urine Straw (Yellow); Glucose, Dipstick Normal (Normal); Ketone-Dipstick 50 mg/dl (Negative); Leukocyte Esterase-Dipstick Negative /ul (Negative); Nitrite-Dipstick Positive (Negative); Occult Blood-Urine 10 /ul (Negative); Protein-Dipstick 30 mg/dl (Negative); Specific Gravity, Urine 1.015 (1.002-1.030); Urine Bilirubin Dipstick Negative (Negative); Urine Clarity Clear (Clear); Urine Urobilinogen 1 mg/dl (Normal); Urine pH 6.5 (5.0 - 8.0)
[2024-07-05 14:44] LABS: Bacteria 3+ /hpf (None Seen); Mucous, Urine 2+ /hpf (<or=2+); Squamous Epithelial Cells - UA 5-10 SEEN /hpf (5-10); White Blood Cells 5-10 SEEN /hpf (0-5)
[2024-07-05 15:04] VITALS: BP 150/64; PULSE 61; RESP 16; TEMP 36.9; O2SAT 99
== END 2024-07-05 15:05 | disposition home or self-care (01) ==
PROVIDERS: Nurse Practitioner; Emergency Provider Surgery; Referring Provider Surgery; Visit Provider Surgery
DX: R11.2 Nausea with vomiting, unspecified (principal); R19.7 Diarrhea, unspecified; F17.210 Nicotine dependence, cigarettes, uncomplicated
CPT/HCPCS: 71046; 80053; 81001; 83690; 85025; 87077; 87086; 87088; 87186; 87631; 96361; 96374; 96375; 99283; J7030; J2405